=== PATIENT | male | born 1960 | race Caucasian/White ===

== ENCOUNTER 2016-05-28 08:00 | Outpatient (CLI) | payer MEDICAID | END 2016-05-28 08:01 | disposition home or self-care (01) | DX: E78.5 Hyperlipidemia, unspecified (principal); R74.8 Abnormal levels of other serum enzymes; Z79.899 Other long term (current) drug therapy; R53.83 Other fatigue ==

== ENCOUNTER 2016-11-22 10:29 | Outpatient (CLI) | payer MEDICAID ==
[2016-11-22 13:10] LABS: BASOPHILS # (AUTO) 0.1 10^3/uL (0.0-0.1); EOSINOPHILS # (AUTO) 0.1 10^3/uL (0.0-0.7); MEAN CORPUSCULAR VOLUME 93.4 fL (80.0-94.0); MONOCYTES # (AUTO) 0.4 10^3/uL (0.0-1.0); MONOCYTES % (AUTO) 5.2 %; NEUTROPHILS # (AUTO) 4.4 10^3/uL (1.5-6.6); RED BLOOD COUNT 4.92 10^6/uL (4.70-6.10)
[2016-11-22 13:13] LABS: BASOPHILS % (AUTO) 0.8 %; HCT - HEMATOCRIT 45.9 % (42.0-52.0); HGB - HEMOGLOBIN 16.1 g/dL (14.0-18.0); LYMPHOCYTES % (AUTO) 28.4 %; MEAN CORPUSCULAR HEMOGLOBIN 32.7 pg (27.0-31.0); MEAN PLATELET VOLUME 8.7 fL (7.4-11.4); NEUTROPHILS % (AUTO) 63.6 %; RED CELL DISTRIBUTION WIDTH 12.9 % (12.0-15.0)
[2016-11-22 13:47] LABS: ALBUMIN/GLOBULIN RATIO 1.2 (1.0-2.2); BILIRUBIN,TOTAL 1.1 mg/dL (0.2-1.0); BUN - BLOOD UREA NITROGEN 13 mg/dL (6-20); CALCIUM 9.2 mg/dL (8.5-10.3); CARBON DIOXIDE - CO2 26 mmol/L (21-32); CHLORIDE 101 mmol/L (101-111); CHOL/HDL RATIO 8.1 (<5.0); CHOLESTEROL 348 mg/dL; CREATININE 1.1 mg/dL (0.6-1.2); GFR - MDRD 69 (>89); GLUCOSE 94 mg/dL (70-100); HDL CHOLESTEROL 43 mg/dL; POTASSIUM 4.2 mmol/L (3.5-5.0); SODIUM 137 mmol/L (135-145); TOTAL PROTEIN 8.1 g/dL (6.7-8.2); TRIGLYCERIDES 597 mg/dL
[2016-11-22 14:21] LABS: LDL CHOLESTEROL,DIRECT 177 mg/dL
== END 2016-11-22 10:30 | disposition home or self-care (01) ==
LOC: LAB.N 10:29
PROVIDERS: ATTEND Nurse Practitioner Gerontology
DX: E78.2 Mixed hyperlipidemia (principal)
CPT/HCPCS: 36415; 80053; 80061; 84443; 85025

== ENCOUNTER 2017-01-24 13:18 | Outpatient (CLI) | payer MEDICAID ==
[2017-01-24 19:30] LABS: ALBUMIN/GLOBULIN RATIO 1.4 (1.0-2.2); BILIRUBIN,TOTAL 0.9 mg/dL (0.2-1.0); BUN - BLOOD UREA NITROGEN 16 mg/dL (6-20); CALCIUM 9.4 mg/dL (8.5-10.3); CARBON DIOXIDE - CO2 25 mmol/L (21-32); CHLORIDE 104 mmol/L (101-111); GFR - MDRD 77 (>89); GLUCOSE 91 mg/dL (70-100); POTASSIUM 3.9 mmol/L (3.5-5.0); SODIUM 137 mmol/L (135-145); TOTAL PROTEIN 7.7 g/dL (6.7-8.2)
[2017-01-24 20:04] LABS: THYROID STIMULATING HORMONE 5.97 uIU/mL (0.34-5.60)
== END 2017-01-24 13:19 | disposition home or self-care (01) ==
LOC: LAB.N 13:18
PROVIDERS: ATTEND Nurse Practitioner Gerontology
DX: R74.8 Abnormal levels of other serum enzymes (principal); E03.9 Hypothyroidism, unspecified; Z79.899 Other long term (current) drug therapy
CPT/HCPCS: 36415; 80053; 84439; 84443

== ENCOUNTER 2017-03-08 08:00 | Outpatient (CLI) | payer MEDICAID | END 2017-03-08 08:01 | disposition home or self-care (01) | LOC: LAB.N 08:00 | PROVIDERS: ATTEND Nurse Practitioner Gerontology | DX: E03.9 Hypothyroidism, unspecified (principal) | CPT/HCPCS: 36415; 84443 ==

== ENCOUNTER 2017-07-16 08:00 | Outpatient (CLI) | payer MEDICAID ==
[2017-07-16 13:25] LABS: ALBUMIN 4.4 g/dL (3.2-5.5); ALKALINE PHOSPHATASE 57 IU/L (42-121); ALT ALANINE AMINOTRANSFERASE 64 IU/L (10-60); AST ASPARTATE AMINOTRANSFERASE 63 IU/L (10-42); BILIRUBIN,TOTAL 0.9 mg/dL (0.2-1.0); CHOL/HDL RATIO 7.3 (<5.0); CHOLESTEROL 315 mg/dL; HDL CHOLESTEROL 43 mg/dL; LDL CHOLESTEROL,CALCULATED 203 mg/dL; LDL/HDL RATIO 4.7 (<3.6); TOTAL PROTEIN 7.8 g/dL (6.7-8.2); VLDL CHOLESTEROL 69 mg/dL
[2017-07-16 13:26] LABS: BILIRUBIN,DIRECT < 0.1 mg/dL (0.1-0.5)
== END 2017-07-16 08:01 | disposition home or self-care (01) ==
LOC: LAB.N 08:00
PROVIDERS: ATTEND Nurse Practitioner Gerontology
DX: E78.2 Mixed hyperlipidemia (principal); E78.1 Pure hyperglyceridemia; Z79.899 Other long term (current) drug therapy; R74.8 Abnormal levels of other serum enzymes
CPT/HCPCS: 36415; 80061; 80076; 83721; 84443